=== PATIENT | male | born 1960 | race Caucasian/White ===

== ENCOUNTER → 2017-06-15 | Outpatient (CLI) | payer BC | LOC: BMCIMAGING 14:14 | PROVIDERS: ATTEND Podiatrist Foot & Ankle Surgery | DX: S99.921A Unspecified injury of right foot, initial encounter (principal); R93.8 Abnormal findings on diagnostic imaging of other specified body structures ==

== ENCOUNTER → 2017-07-06 | Outpatient (CLI) | payer BC | LOC: BMCIMAGING 08:41 | PROVIDERS: ATTEND Podiatrist Foot & Ankle Surgery | DX: S92.421A Displaced fracture of distal phalanx of right great toe, initial encounter for closed fracture (principal) ==